=== PATIENT | male | born 1970 | race Caucasian/White ===

== ENCOUNTER 2018-06-22 20:19 | Emergency (ER) | payer SELFPAY ==
[2018-06-22 20:20] VITALS: BP 122/80; PULSE 106; RESP 18; TEMP 36.4; O2SAT 98; BMI 35.6
--- NOTE | 2018-06-22 20:35 | RAD_ITS ---
STUDY: X-RAY - LEFT ANKLE REASON FOR EXAM: Male, 48 years old. Pain TECHNIQUE: 3 view(s) of the ankle. COMPARISON: None. FINDINGS: There is no evidence of fracture or dislocation. Plantar calcaneal spur is present. There are no radiodense foreign bodies. RAD/Ankle min 3 Views IMPRESSION: No fracture or dislocation. Plantar calcaneal spur. Electronically Signed: Manuel Doss, at 21:02 EDT Tel , Service support ,
--- NOTE | 2018-06-22 20:36 | ED.VISSUMM ---
- ER Visit Summary Date of Service: 06/22/18 Chief Complaint: Left ankle pain History of Present Illness: The patient is a 48 M with a 2 and half week history of left ankle pain. Patient states pain fluctuates. Yesterday was quite severe but today is more mild. He does note that it is worse with activity and is better if he is able to sit and rest. He denies any known injury. He has not had recent change of his shoes. Physical Examination: Vital signs unremarkable. Patient lying in bed no acute distress. Left lower extremity examination reveals tenderness of the lateral malleolus left ankle and along the ATFL ligaments. There is no erythema or warmth. There is minimal edema. There is no tenderness over the foot or knee. Test Results: Ankle x-rays are unremarkable. Emergency Department Course and Treatment: Test results discussed with patient. He will be given an air stirrup splint which she will use with his tennis shoes. He can return to work tomorrow. Treatment Plan: [] Disposition: Discharge Impression: Left ankle sprain This note was generated with [employer] dictation software. It may contain incorrect words, spelling, and punctuation that were not noted in review of the chart prior to signing ED Disposition - Plan for ED Patient: Disposition: Home or Assisted Living Instructions: ED Sprain Ankle W X Ray Referrals: Tawnya Wu MD [STAFF PHYSICIAN] - As Needed
[2018-06-22 21:44] VITALS: BP 113/74; PULSE 89; RESP 18; O2SAT 99
== END 2018-06-22 21:44 | disposition home or self-care (01) ==
PROVIDERS: Emergency Provider Emergency Medicine
DX: S93.402A Sprain of unspecified ligament of left ankle, initial encounter (principal); X58.XXXA Exposure to other specified factors, initial encounter; Y93.9 Activity, unspecified; Y92.89 Other specified places as the place of occurrence of the external cause; Y99.9 Unspecified external cause status; Z98.2 Presence of cerebrospinal fluid drainage device
CPT/HCPCS: 73610; 99283